=== PATIENT | male | born 1950 | race Caucasian/White ===

== ENCOUNTER 2019-11-23 20:16 | Emergency (ER) | payer OTHER, MEDICARE ==
[~2019-11-23] VITALS: Ht 167.6 cm; Wt 80.3 kg
[~2019-11-23 20:16] MED LIST: LEVO125T PO
[2019-11-23 20:20] VITALS: BP_SYST 120
[2019-11-23] MEDS: DIPH-TET-PERTUS Vaccine 0.5 ML VIAL (ADACEL) I.M. ONE (21:47)
[2019-11-23] MEDS: BACITRACIN 1 GM OINT TP ONE (21:48)
[2019-11-23 21:55] VITALS: BP_SYST 120
[2019-11-23] MEDS ORDERED: BACITRACIN 1 GM OINT TP ONE (21:56)
== END 2019-11-23 21:55 | disposition home or self-care (01) ==
LOC: SED 20:16
DX: S51.851A Open bite of right forearm, initial encounter (principal); E07.9 Disorder of thyroid, unspecified; Z88.1 Allergy status to other antibiotic agents; Z88.2 Allergy status to sulfonamides; W54.0XXA Bitten by dog, initial encounter; Y93.89 Activity, other specified; Y92.89 Other specified places as the place of occurrence of the external cause; Y99.8 Other external cause status
CPT/HCPCS: 90715; 99283